=== PATIENT | male | born 1975 | race Caucasian/White ===

== ENCOUNTER → 2021-07-17 | Day surgery (SDC) | payer OTHER ==
[~2021-07-17] MED LIST: FAMOTIDINE20 MG PO; HYDROCODON-ACE1 EAC4 PO; LORATADINE10 MG PO
== END | disposition home or self-care (01) ==
LOC: OR 06:21
DX: J34.2 Deviated nasal septum (principal); J34.3 Hypertrophy of nasal turbinates; K21.9 Gastro-esophageal reflux disease without esophagitis; Z79.899 Other long term (current) drug therapy
CPT/HCPCS: C1726; J0171; J0690; J2001; J2250; J2704; J3010; J7030; J7120